=== PATIENT | female | born 2005 | race Caucasian/White ===

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

== ENCOUNTER → 2023-10-02 | Outpatient (CLI) | payer BC, SELFPAY ==
--- NOTE | 2023-10-02 09:35 | RAD_ITS ---
STUDY: X-RAY - LUMBOSACRAL SPINE REASON FOR EXAM: Female, 18 years old. PAIN TECHNIQUE: 6 view(s) of the lumbosacral spine were obtained. COMPARISON: Comparison is made with prior study dated October 15, 2020. FINDINGS: Normal lumbar lordosis. There is no substantial scoliosis. Grade 1 anterolisthesis of L5 on S1. No significant change on the flexion-extension views. There is evidence of spondylolysis of the pars interarticularis of the L5 vertebrae. Normal vertebral bodies and endplates. Normal disc space heights. Normal bilateral sacral ala, sacroiliac joints, and visualized sacrum. Normal visualized soft tissue structures. RAD/L/S Spine w Bend Min 6 Vw IMPRESSION: Grade 1 anterolisthesis of L5 on S1 due to spondylolysis of the pars interarticularis of the L5 vertebrae. Electronically Signed: Raimundo Finch MD at 15:29 EDT ,
== END | disposition home or self-care (01) ==
PROVIDERS: PCP Family Medicine; Referring Provider Family Medicine; Visit Provider Family Medicine
DX: M43.17 Spondylolisthesis, lumbosacral region (principal)
CPT/HCPCS: 72114